=== PATIENT | female | born 1935 | race Caucasian/White ===

== ENCOUNTER 2021-04-06 18:00 | Observation (INO) | payer MEDICARE, BC ==
[2021-04-06] MEDS ORDERED: Dextrose 50% Abboject 50 ML SYRINGE SLOW IVP PRN (20:28)
[2021-04-06] MEDS ORDERED: Dextrose 5% in Water 1,000 ML IV PRN (20:28)
[2021-04-06] MEDS ORDERED: hydrALAZINE 20 MG/ML VIAL SLOW IVP PRN (20:40)
[2021-04-06] MEDS ORDERED: Ondansetron PF 4 MG/2 ML Vial IVP PRN (20:40)
[2021-04-06] MEDS ORDERED: traMADol HCl 50 MG TAB PO PRN (20:48)
[2021-04-06] MEDS ORDERED: Morphine 2 MG/ML VIAL ONE (21:04)
[2021-04-06] MEDS ORDERED: Acetaminophen/Codeine 30-300mg Tablet PO PRN (21:19)
[2021-04-06 23:01] VITALS: BMI 25.1
[2021-04-07] MEDS ORDERED: Acetaminophen 500 MG TAB ONE (00:48)
[2021-04-07] MEDS: Acetaminophen 500 MG TAB PO SCH ×3 (04:39→12:10)
[2021-04-07 05:57] LABS: SARS-CoV-2 NAA Rapid Test Not Detected (NotDetected)
[2021-04-07] MEDS ORDERED: Polyethylene Glycol 3350 17 GM Packet PO SCH (09:00)
[2021-04-07] MEDS ORDERED: TETANUS AND DIPHTHERIA TOX/PF 0.5 ML DISP.SYRIN IM ONE (09:00)
[2021-04-07] MEDS ORDERED: Ciprofloxacin 500 MG TAB PO SCH ×2 (12:00→21:00)
[2021-04-07 12:47] VITALS: TEMP 98.9
[2021-04-07 14:08] VITALS: BP 164/76
[2021-04-07] MEDS ORDERED: Gabapentin 100 MG CAP PO SCH (21:00)
[2021-04-08] MEDS ORDERED: Levothyroxine Sodium 25 MCG TAB PO SCH (06:00)
[2021-04-08] MEDS ORDERED: Famotidine 20 MG TAB PO SCH (09:00)
[2021-04-08] MEDS ORDERED: Tamsulosin HCl 0.4 MG CAP PO SCH (09:00)
[2021-04-08] MEDS ORDERED: Escitalopram Oxalate 10 mg Tablet PO SCH (09:00)
== END 2021-04-07 13:25 ==
LOC: ERS 18:00 → INTOOBSV 20:49 → ERHOLD 20:49 → 2NO 04-07 03:51
PROVIDERS: ADMIT Surgery; ATTEND Surgery
DX: S06.0X0A Concussion without loss of consciousness, initial encounter (principal); S01.111A Laceration without foreign body of right eyelid and periocular area, initial encounter; G30.9 Alzheimer's disease, unspecified; F02.80 Dementia in other diseases classified elsewhere, unspecified severity, without behavioral disturbance, psychotic disturbance, mood disturbance, and anxiety; I10 Essential (primary) hypertension; E03.9 Hypothyroidism, unspecified; M47.812 Spondylosis without myelopathy or radiculopathy, cervical region; M48.02 Spinal stenosis, cervical region; Z79.2 Long term (current) use of antibiotics; Z79.899 Other long term (current) drug therapy; Z88.8 Allergy status to other drugs, medicaments and biological substances; Z20.822 Contact with and (suspected) exposure to COVID-19; W06.XXXA Fall from bed, initial encounter
CPT/HCPCS: 70450; 72125; 96374; 97116; 97139 ×3; 99285; J2270; U0002; U0005; 51701; 51798; 90472; 90714; G0378; G0390